=== PATIENT | female | born 1945 | race Caucasian/White ===

== ENCOUNTER 2018-06-22 09:27 | Emergency (ER) | payer MEDICARE ==
[2018-06-22 09:52] VITALS: BP 142/72
--- NOTE | 2018-06-22 10:26 | UC ---
Skin Complaint HPI - HPI Summary HPI Summary: Patient is a 73 year old , who present today to the urgent care with a tick bite. She notices the tick attached to the left anterior shoulder. She was in the park yesterday afternoon and feels that likely got it from there. She denies any fevers or other symptoms. - History of Current Complaint Chief Complaint: UCBiteInjury Time Seen by Provider: 06/22/18 09:55 Stated Complaint: TICK Hx Obtained From: Patient ?: No Pain Intensity: 0 - Allergy/Home Medications Allergies/Adverse Reactions: Allergies Allergy/AdvReac Type Severity Reaction Status Date / Time preservatives in eye drops Allergy Rash And Uncoded 06/22/18 09:54 Itching Home Medications: Home Medications Dorzolamide 2% OPTH (NF) [Trusopt 2% OPTH (NF)] 1 drop BOTH EYES TID 06/22/18 [ History Confirmed 06/22/18] Travoprost Z 0.004% OPHTH (NF) [Travatan Z 0.004% OPTH (NF)] 1 drop BOTH EYES [History] PMH/Surg Hx/FS Hx/Imm Hx - Additional Past Medical History Additional PMH: Past medical history: Hypertension, glaucoma Past surgical history: Hysterectomy, bunionectomy Social history: Occasional alcohol use, nonsmoker, no substance use family history: none/ noncontributory Previously Healthy: Yes - Surgical History Surgical History: Yes Surgery Procedure, Year, and Place: hysterectomy, bunionectomy - Social History Alcohol Use: Occasionally Substance Use Type: None Smoking Status (MU): Never Smoked Tobacco - Immunization History Most Recent Influenza Vaccination: none Review of Systems All Other Systems Reviewed And Are Negative: Yes Constitutional: Positive: Negative Skin: Positive: Rash, Other - Tick bite Eyes: Positive: Negative ENT: Positive: Negative Respiratory: Positive: Negative Cardiovascular: Positive: Negative Gastrointestinal: Positive: Negative Genitourinary: Positive: Negative Motor: Positive: Negative Neurovascular: Positive: Negative Musculoskeletal: Positive: Negative Neurological: Positive: Negative Psychological: Positive: Negative Is Patient Immunocompromised?: No Physical Exam - Summary Physical Exam Summary: Physical Exam: Const: Appears well. No signs of apparent distress present. Alert and oriented x 3. Musculo: Walks with a normal gait. Head/Face: Atraumatic, normocephalic on inspection. Eyes: EOMI and PERRLA in both eyes. Conjunctivae clear. No discharge noted ENT: Hearing normal Respiratory: Respirations are unlabored. Lungs clear to auscultation bilaterally, no wheezing , rhonchi or rales noted . CVS: Regular rate and Rhythm, S1S2 normal , no murmurs identified. Extremities: Peripheral circulation is grossly normal. Pulses 2+ Abdomen : Soft non tender , nondistended , Bowel sounds present . No guarding , rebound tenderness or rigidity noted. Skin: tick attached to the left anterior shoulder , slight erythema around the tick bite . Neuro: Cranial nerves II to XII intact, motor and sensory intact. DTR Intact bilaterally. Mood is normal. Affect is normal. Triage Information Reviewed: Yes Vital Signs: Initial Vital Signs Temp 97 F 06/22/18 09:47 Pulse 68 06/22/18 09:47 Resp 16 06/22/18 09:47 BP 142/72 06/22/18 09:47 Pulse Ox 100 06/22/18 09:47 Vital Signs Reviewed: Yes Course/Dx - Course Course Of Treatment: During the visit today, tick was removed with the help of a tick twister. Wound was dressed with triple antibiotic. She was given 200 mg of doxycycline, dispensed for home to be taken after food. She we discussed that she should monitor for any signs of Lyme disease and follow-up with her primary care physician as needed - Diagnoses Provider Diagnosis: Tick bite of deltoid region Discharge - Sign-Out/Discharge Documenting (check all that apply): Patient Departure All imaging exams completed and their final reports reviewed: No Studies - Discharge Plan Condition: Stable Disposition: HOME Patient Education Materials: Lyme Disease (ED), Tick Bite (ED) Referrals: Milena Banks MD [Primary Care Provider] - If Needed Additional Instructions: Please take 200 mg of doxycycline when he reached home after eating breakfast. Monitor for any signs or symptoms of Lyme disease. Follow up with your primary care doctor in 1 week if needed Patients blood pressure slightly high in Urgent care today , plan follow up with PCP for better control Return to Urgent care / ER if symptoms get worse. - Billing Disposition and Condition Condition: STABLE Disposition: Home
[2018-06-22] MEDS ORDERED: DOXYcycline CAP(*) 100 MG PO ONE ×2 (10:35→10:41)
== END 2018-06-22 10:49 | disposition home or self-care (01) ==
LOC: UCCORT 09:27
DX: T63.481A Toxic effect of venom of other arthropod, accidental (unintentional), initial encounter (principal); Y92.830 Public park as the place of occurrence of the external cause; I10 Essential (primary) hypertension; H40.9 Unspecified glaucoma
CPT/HCPCS: 99202; A9270-GY; G0463

== ENCOUNTER 2019-03-15 10:59 | Emergency (ER) | payer MEDICARE ==
[2019-03-15 14:04] VITALS: BP 157/69
--- NOTE | 2019-03-15 14:44 | UC ---
FLU HPI - HPI Summary HPI Summary: Pt presents with c/o malaise, fatigue, right side sinus pressure and pain, congestion, cough, and nasal congestion X 1 week. Pt also noticed that right eye has become red, is draining clear liquid X 3 days. - History of Current Complaint Chief Complaint: UCRespiratory Stated Complaint: SINUS PRESSURE Time Seen by Provider: 03/15/19 14:32 Hx Obtained From: Patient ?: No Onset/Duration: Gradual Onset, Lasting Days, Still Present, Worse Since - since onset Severity Currently: Mild Severity Initially: Moderate Pain Intensity: 4 Associated Signs & Symptoms: Positive: Fever, Myalgia, Nasal Congestion, Headache Related Hx: Possible Flu/Infectious Exposure - Risk Factors Influenza Risk Factors: Negative - Allergy/Home Medications Allergies/Adverse Reactions: Allergies Allergy/AdvReac Type Severity Reaction Status Date / Time preservatives in eye drops Allergy Rash And Uncoded 03/15/19 14:00 Itching PMH/Surg Hx/FS Hx/Imm Hx Previously Healthy: Yes - Surgical History Surgical History: Yes Surgery Procedure, Year, and Place: hysterectomy, bunionectomy - Family History Known Family History: Positive: Cardiac Disease - Social History Occupation: Employed Part-time Lives: Alone Alcohol Use: Occasionally Substance Use Type: None Smoking Status (MU): Never Smoked Tobacco Have You Smoked in the Last Year: No - Immunization History Most Recent Influenza Vaccination: none Review of Systems All Other Systems Reviewed And Are Negative: Yes Constitutional: Positive: Fever, Chills, Fatigue Skin: Positive: Negative Eyes: Positive: Drainage, Eye Redness ENT: Positive: Nasal Discharge, Sinus Congestion, Sinus Pain/Tenderness Respiratory: Positive: Cough Cardiovascular: Positive: Negative Gastrointestinal: Positive: Negative Genitourinary: Positive: Negative Motor: Positive: Negative Neurovascular: Positive: Negative Musculoskeletal: Positive: Myalgia Neurological: Positive: Headache Psychological: Positive: Negative Is Patient Immunocompromised?: No Physical Exam Triage Information Reviewed: Yes Appearance: Ill-Appearing Vital Signs: Initial Vital Signs Temp 99.4 F 03/15/19 13:57 Pulse 80 03/15/19 13:57 Resp 18 03/15/19 13:57 BP 157/69 03/15/19 13:57 Pulse Ox 98 03/15/19 13:57 Vital Signs Reviewed: Yes Eyes: Positive: Conjunctiva Inflamed, Other: - scleritis ENT: Positive: Nasal congestion, Sinus tenderness Dental Exam: Normal Neck exam: Normal Respiratory Exam: Normal Cardiovascular Exam: Normal Musculoskeletal Exam: Normal Neurological Exam: Normal Psychological Exam: Normal Skin Exam: Normal Flu Course/Dx - Differential Dx/Diagnosis Differential Diagnosis/HQI/PQRI: Influenza, Upper Respiratory Infection Provider Diagnosis: Sinusitis, Redness of eye, right Discharge ED - Sign-Out/Discharge Documenting (check all that apply): Patient Departure All imaging exams completed and their final reports reviewed: No Studies - Discharge Plan Condition: Stable Disposition: HOME Prescriptions: Amoxicillin PO (*) [Amoxicillin 875 MG (*)] 875 mg PO Q12H #20 tab Guaifenesin/Pseudoephedrne HCl [Mucinex D ER 600-60 mg Tablet] 1 each PO Q12H # 14 tab.er.12h Patient Education Materials: Sinusitis (ED) Referrals: Milena Banks MD [Primary Care Provider] - If Needed - Billing Disposition and Condition Condition: STABLE Disposition: Home
== END 2019-03-15 14:54 | disposition home or self-care (01) ==
LOC: UCCORT 10:59
DX: J32.9 Chronic sinusitis, unspecified (principal); H57.89 Other specified disorders of eye and adnexa; R05 Cough; M79.10 Myalgia, unspecified site; R53.83 Other fatigue; Z88.8 Allergy status to other drugs, medicaments and biological substances
CPT/HCPCS: 99212; G0463